=== PATIENT | male | born 1965 | race Hispanic/Latino ===

== ENCOUNTER 2018-06-14 09:47 | Emergency (ER) | payer SELFPAY ==
[2018-06-14] MEDS ORDERED: TETANUS & DIPHTHERIA TOX,ADULT 0.5 ML VIAL ONE (10:40)
--- NOTE | 2018-06-14 10:40 | RAD REPORT ---
EXAM DESCRIPTION: RAD - Hand Left 3 View - 06/14/2018 10:35 am CLINICAL HISTORY: Laceration, Puncture wound COMPARISON: No comparisons FINDINGS: Laceration is noted in the thenar region. No foreign body is seen. No fracture or dislocat ion evident.
[2018-06-14] MEDS ORDERED: LIDOCAINE 1% MPF 5 ML VIAL ONE (11:06)
--- NOTE | 2018-06-14 11:39 | ER ---
Nurse's Notes [facility] Name: Anthony Mcdaniel Age: 53 yrs Sex: Male : 1965 Arrival Date: 06/14/2018 Time: 09:51 Bed 14 Private MD: None, None Diagnosis: Laceration without foreign body of left hand Presentation: 06/14 09:57 Presenting complaint: my brother was cutting with a knife and he cut his LEFT hand. tw2 Transition of care: patient was not received from another setting of care. Complicating Factors: There are no complicating factors for this patient. Onset of symptoms was June 14, 2018. Risk Assessment: Do you want to hurt yourself or someone else? Patient reports no desire to harm self or others. Initial Sepsis Screen: Does the patient meet any 2 criteria? No. Patient's initial sepsis screen is negative. Does the patient have a suspected source of infection? No. Patient's initial sepsis screen is negative. Care prior to arrival: None. 09:57 Method Of Arrival: Ambulatory tw2 09:57 Acuity: MICHAEL 4 tw2 Triage Assessment: 10:01 General: Appears in no apparent distress. Behavior is calm, cooperative, appropriate tw2 for age. Pain: Complains of pain in Left first web space. Injury Description: Laceration sustained to Left first web space. Historical: - Allergies: 10:00 No Known Allergies; tw2 - Home Meds: 10:00 losartan oral oral [Active]; amlodipine oral [Active]; tw2 - PMHx: 10:00 Hypertension; tw2 - PSHx: 10:00 None; tw2 - Immunization history:: Last tetanus immunization: unknown. - Social history:: Smoking status: . - Ebola Screening: : Patient denies travel to an Ebola-affected area in the 21 days before illness onset. Screenin:20 Abuse screen: Denies threats or abuse. Denies injuries from another. Nutritional bp screening: No deficits noted. Tuberculosis screening: No symptoms or risk factors identified. Fall Risk None identified. Assessment: 10:15 General: Appears in no apparent distress. comfortable, Behavior is calm, cooperative, bp appropriate for age. Pain: Denies pain. Neuro: Level of Consciousness is awake, alert, obeys commands, Oriented to person, place, time, situation, Appropriate for age. Cardiovascular: No deficits noted. Respiratory: No deficits noted. GI: No signs and/or symptoms were reported involving the gastrointestinal system. : No signs and/or symptoms were reported regarding the genitourinary system. EENT: No deficits noted. Derm: No deficits noted. Musculoskeletal: Circulation, motion, and sensation intact. Range of motion: intact in all extremities. Injury Description: Laceration is clean, 0.5 to 2.5 cm long, not bleeding. 11:26 Reassessment: PROVIDER AT B/S FOR LAC REPAIR. bp Vital Signs: 10:00 BP 173 / 99; Pulse 67; Resp 18; Temp 98.1(O); Pulse Ox 99% on R/A; Pain 10/10; tw2 ED Course: 09:51 Patient arrived in ED. mr 09:52 None, None is Private Physician. mr 09:57 Triage completed. tw2 10:01 Arm band placed on. tw2 10:07 Zay Wiseman, [place] is Primary Nurse. bp 10:07 Guido Escobar NP is PHCP. pm1 10:08 Karlos Waterman MD is Attending Physician. pm1 10:20 Patient has correct armband on for positive identification. Bed in low position. Call bp light in reach. Side rails up X2. Adult w/ patient. 10:34 X-ray completed. Portable x-ray completed in exam room. Patient tolerated procedure sw well. 10:35 Hand Left 3 View XRAY In Process Unspecified. EDMS 11:30 Assist provider with laceration repair on Left first web space that was 2.5 cm. or less iw using sutures. Set up tray. Performed by Guido Escobar STONEMASON APPRENTICE Dressed with 4X4s, Kerlix, Patient tolerated well. Patient did not have IV access during this emergency room visit. Administered Medications: 10:20 Drug: Tetanus-Diphtheria Toxoid Adult 0.5 ml {Supervisory Civil Engineer: [employer]. Exp: bp 05/13/2020. Lot #: [id number]. } Route: IM; Site: right deltoid; 10:58 Follow up: Response: No adverse reaction bp 10:57 Drug: Lidocaine (1 %) 5 ml {Note: at b/s for provider.} Volume: 5 ml; Route: bp Infiltration; Outcome: 11:38 Discharge ordered by . pm1 11:59 Discharged to home ambulatory, with friend. iw 11:59 Condition: good 11:59 Discharge instructions given to patient, friend, Instructed on discharge instructions, follow up and referral plans. medication usage, Demonstrated understanding of instructions, follow-up care, medications, Prescriptions given X 1. 12:00 Patient left the ED. iw Signatures: Dispatcher [employer] EDMA Lonnie Kanika Edita Rojas RN RN iw Pao Lui Patrick, JAYRO STONEMASON APPRENTICE pm1 Sandra Soto RN RN tw2 Zay Wiseman, RN RN bp
--- NOTE | 2018-06-14 11:40 | EDPHYS ---
Physician Documentation [facility] Name: Anthony Mcdaniel Age: 53 yrs Sex: Male : 1965 Arrival Date: 06/14/2018 Time: 09:51 Bed 14 Private MD: None, None ED Physician Karlos Waterman HPI: 06/14 10:30 This 53 yrs old Male presents to ER via Ambulatory with complaints of pm1 Laceration To Left Hand. 10:30 The patient has a laceration related to: cooking, from a knife, The injury was pm1 accidental. The laceration(s) is(are) located on the Left first web space. Onset: The symptoms/episode began/occurred just prior to arrival. Associated signs and symptoms: Pertinent negatives: deformity, dizziness, heavy bleeding, numbness distal to injury, suspected foreign body. The patient has not experienced similar symptoms in the past. The patient has not recently seen a physician. Patient was cutting food and accidentally cut his left hand with a knife into his left first web space. No puncture wound. Historical: - Allergies: 10:00 No Known Allergies; tw2 - Home Meds: 10:00 losartan oral oral [Active]; amlodipine oral [Active]; tw2 - PMHx: 10:00 Hypertension; tw2 - PSHx: 10:00 None; tw2 - Immunization history:: Last tetanus immunization: unknown. - Social history:: Smoking status: . - Ebola Screening: : Patient denies travel to an Ebola-affected area in the 21 days before illness onset. ROS: 11:05 Constitutional: Negative for fever, chills, and weight loss, Eyes: Negative for injury, pm1 pain, redness, and discharge, ENT: Negative for injury, pain, and discharge, Neck: Negative for injury, pain, and swelling, Cardiovascular: Negative for chest pain, palpitations, and edema, Respiratory: Negative for shortness of breath, cough, wheezing, and pleuritic chest pain, Abdomen/GI: Negative for abdominal pain, nausea, vomiting, diarrhea, and constipation, Back: Negative for injury and pain, : Negative for injury, bleeding, discharge, and swelling, MS/Extremity: Negative for injury and deformity. 11:05 Skin: Positive for laceration(s), of the Left first web space. 11:05 Neuro: Negative for numbness, tingling, weakness. Exam: 11:05 Constitutional: This is a well developed, well nourished patient who is awake, alert, pm1 and in no acute distress. Head/Face: Normocephalic, atraumatic. Eyes: Pupils equal round and reactive to light, extra-ocular motions intact. Lids and lashes normal. Conjunctiva and sclera are non-icteric and not injected. Cornea within normal limits. Periorbital areas with no swelling, redness, or edema. ENT: Nares patent. No nasal discharge, no septal abnormalities noted. Tympanic membranes are normal and external auditory canals are clear. Oropharynx with no redness, swelling, or masses, exudates, or evidence of obstruction, uvula midline. Mucous membranes moist. Neck: Trachea midline, no thyromegaly or masses palpated, and no cervical lymphadenopathy. Supple, full range of motion without nuchal rigidity, or vertebral point tenderness. No Meningismus. Chest/axilla: Normal chest wall appearance and motion. Nontender with no deformity. No lesions are appreciated. Cardiovascular: Regular rate and rhythm with a normal S1 and S2. No gallops, murmurs, or rubs. Normal PMI, no JVD. No pulse deficits. Respiratory: Lungs have equal breath sounds bilaterally, clear to auscultation and percussion. No rales, rhonchi or wheezes noted. No increased work of breathing, no retractions or nasal flaring. Abdomen/GI: Soft, non-tender, with normal bowel sounds. No distension or tympany. No guarding or rebound. No evidence of tenderness throughout. Back: No spinal tenderness. No costovertebral tenderness. Full range of motion. 11:05 Skin: Appearance: normal except for affected area, injury, laceration(s), the wound is approximately 2 cm(s), with a depth of 0.5 cm(s), of the Left first web space, puncture(s), are not present, of the left hand, wound examined and probed with sterile q-tip after cleansing with Betadine. No puncture wound present. 11:05 Neuro: Orientation: is normal, Motor: is normal, moves all fours, strength is normal, strength is 5/5 in all extremities, Sensation: is normal, no obvious gross deficits, Gait: is steady, at a normal pace, without difficulty. Vital Signs: 10:00 BP 173 / 99; Pulse 67; Resp 18; Temp 98.1(O); Pulse Ox 99% on R/A; Pain 10/10; tw2 Laceration: 11:37 Wound Repair of 2cm ( 0.8in ) subcutaneous laceration to Left first web space. Linear pm1 shaped.. Distal neuro/vascular/tendon intact. Anesthesia: Local anesthetic administered with 2 mls of 1% lidocaine. Wound prep: Extensive cleansing with betadine by nurse, Wound irrigation with saline by nurse, Wound explored extensively, Copious irrigation. Skin closed with 4 4-0 Prolene using simple sutures and sterile technique. Dressed with Bacitracin, 4x4's. Patient tolerated well. MDM: 10:08 Patient medically screened. pm1 10:55 Data reviewed: vital signs. Data interpreted: Pulse oximetry: on room air is 99 %. pm1 Interpretation: normal. 11:10 Counseling: I had a detailed discussion with the patient and/or guardian regarding: the pm1 historical points, exam findings, and any diagnostic results supporting the discharge/admit diagnosis, radiology results. 06/14 10:14 Order name: Hand Left 3 View XRAY; Complete Time: 10:48 pm1 06/14 10:14 Order name: Wound Care; Complete Time: 10:23 pm1 06/14 10:52 Order name: Prolene, Sutures; Complete Time: 10:58 pm1 06/14 10:52 Order name: Dressing - Wound; Complete Time: 10:58 pm1 06/14 10:52 Order name: Gloves, Sterile; Complete Time: 10:58 pm1 06/14 10:53 Order name: Setup Suture Tray; Complete Time: 10:58 pm1 Administered Medications: 10:20 Drug: Tetanus-Diphtheria Toxoid Adult 0.5 ml {[place] Manager: [employer]. Exp: bp 05/13/2020. Lot #: [id number]. } Route: IM; Site: right deltoid; 10:58 Follow up: Response: No adverse reaction bp 10:57 Drug: Lidocaine (1 %) 5 ml {Note: at b/s for provider.} Volume: 5 ml; Route: bp Infiltration; Disposition: 18:47 Co-signature as Attending Physician, Karlos Waterman MD Available for consultation at ps1 all times. . Disposition: 06/14/18 11:38 Discharged to Home. Impression: Laceration without foreign body of left hand. - Condition is Stable. - Discharge Instructions: Laceration Care, Adult. - Prescriptions for Keflex 500 mg Oral Capsule - take 1 capsule by ORAL route every 12 hours for 10 days; 20 capsule. - Medication Reconciliation Form, Thank You Letter, Antibiotic Education form. - Follow up: Emergency Department; When: As needed; Reason: Worsening of condition. Follow up: Private Physician; When: 2 - 3 days; Reason: Recheck today's complaints, Continuance of care, Re-evaluation by your physician. - Problem is new. - Symptoms have improved. Signatures: Dispatcher [employer] EDMS Edita Silverio, RN RN iw Guido Escobar, JAYRO NATIONAL SALES DIRECTOR pm1 Sandra Soto RN RN tw2 Zay Wiseman, RN RN bp Karlos Waterman MD MD ps1 Corrections: (The following items were deleted from the chart) 10:55 10:30 The patient has a laceration related to: cooking, from a knife, and The type of pm1 wound is a puncture. The injury was accidental, pm1 10:55 10:30 Patient was cutting food and accidentally punctured his left hand with a knife pm1 into his left first web space. pm1 12:00 11:38 06/14/2018 11:38 Discharged to Home. Impression: Laceration without foreign body iw of left hand. Condition is Stable. Forms are Medication Reconciliation Form, Thank You Letter, Antibiotic Education, Prescription Opioid Use. Follow up: Emergency Department; When: As needed; Reason: Worsening of condition. Follow up: Private Physician; When: 2 - 3 days; Reason: Recheck today's complaints, Continuance of care, Re-evaluation by your physician. Problem is new. Symptoms have improved. pm1
== END 2018-06-14 12:00 | disposition home or self-care (01) ==
LOC: ER 09:47
PROC: 0JQK0ZZ Repair Left Hand Subcutaneous Tissue and Fascia, Open Approach (ICD-10-PCS; principal; 2018-06-14)
DX: S61.412A Laceration without foreign body of left hand, initial encounter (principal); W26.0XXA Contact with knife, initial encounter; I10 Essential (primary) hypertension; Z23 Encounter for immunization
CPT/HCPCS: 90714; 99284

== ENCOUNTER 2018-06-26 10:57 | Emergency (ER) | payer SELFPAY ==
--- NOTE | 2018-06-26 11:35 | ER ---
Nurse's Notes [facility] Name: Anthony Mcdaniel Age: 53 yrs Sex: Male : 1965 Arrival Date: 06/26/2018 Time: 10:59 Bed 11 Private MD: None, None Diagnosis: Encounter for removal of sutures Presentation: 06/26 11:10 Presenting complaint: Patient states: need for suture removal. Pt reports he had aa5 sutures placed 2 weeks ago to left hand. Transition of care: patient was not received from another setting of care. Onset of symptoms was June 2018. Risk Assessment: Do you want to hurt yourself or someone else? Patient reports no desire to harm self or others. Initial Sepsis Screen: Does the patient meet any 2 criteria? No. Patient's initial sepsis screen is negative. Does the patient have a suspected source of infection? No. Patient's initial sepsis screen is negative. Care prior to arrival: None. 11:10 Method Of Arrival: Ambulatory aa5 11:10 Acuity: MICHAEL 4 aa5 Historical: - Allergies: 11:11 No Known Allergies; aa5 - PMHx: 11:11 Hypertension; aa5 - PSHx: 11:11 None; aa5 - Immunization history:: Last tetanus immunization: up to date. - Social history:: Smoking status: Patient/guardian denies using tobacco. - Ebola Screening: : No symptoms or risks identified at this time. Screenin:21 Abuse screen: Denies threats or abuse. Denies injuries from another. Nutritional ss screening: No deficits noted. Tuberculosis screening: No symptoms or risk factors identified. Never had TB. Fall Risk None identified. Assessment: 11:22 General: Appears in no apparent distress. comfortable, Behavior is calm, cooperative. ss Pain: Denies pain. Neuro: Level of Consciousness is awake, alert, obeys commands. Respiratory: Respiratory effort is even, unlabored, Respiratory pattern is regular, symmetrical. EENT: Oral mucosa is moist. Derm: Skin is pink, warm \T\ dry. normal. 12:04 Reassessment: wound cleaned with Hibiclens and NS. Steri-strips placed in affected area.ss Vital Signs: 11:11 BP 154 / 79; Pulse 72; Resp 16 S; Temp 97.4(TE); Pulse Ox 98% on R/A; Weight 68.04 kg aa5 (R); Pain 0/10; ED Course: 10:59 Patient arrived in ED. ag5 11:00 None, None is Private Physician. ag5 11:05 [facility] Bow[facility]C [facility]. kb 11:05 Al Schultz MD is Attending Physician. kb 11:10 Arm band placed on. aa5 11:11 Triage completed. aa5 11:21 Monika Everett, RN is Primary Nurse. ss 11:21 Patient has correct armband on for positive identification. Bed in low position. Call ss light in reach. 11:21 Patient maintains SpO2 saturation greater than 95% on room air. ss 12:03 No provider procedures requiring assistance completed. Patient did not have IV access ss during this emergency room visit. Administered Medications: No medications were administered Outcome: 11:35 Discharge ordered by . kb 12:03 Discharged to home ambulatory, with family. ss 12:03 Condition: good 12:03 Discharge instructions given to patient, family. 12:03 No charge visit due to suture removal. 12:04 Patient left the ED. ss Signatures: Bita Bowie FNP-C FNP-Ckb Calderon, Audri RN RN aa5 Monika Everett, [place] RN Yanira Pedro ag5 Corrections: (The following items were deleted from the chart) 11:12 11:10 Acuity: MICHAEL 5 aa5 aa5
--- NOTE | 2018-06-26 11:35 | EDPHYS ---
Physician Documentation [facility] Name: Anthony Mcdaniel Age: 53 yrs Sex: Male : 1965 Arrival Date: 06/26/2018 Time: 10:59 Bed 11 Private MD: None, None ED Physician Al Schultz HPI: 06/26 11:33 This 53 yrs old Male presents to ER via Ambulatory with complaints of STICHES kb REMOVAL. 11:33 Patient presents to ED for recheck of: laceration. The affected area is on the Left kb first web space. Previous treatment: The patient was initially treated on June 14, 2018, the care was rendered at [facility], Treatment type: The patient's original treatment included sutures. Progress: The patient reports excellent improvement in the affected area. There has been resolution, improvement, or non-development of any drainage, fever, pain, redness or swelling. The patient has not experienced similar symptoms in the past. The patient has been recently seen at the [facility] Emergency Department, a couple of weeks ago, for similar complaints. Historical: - Allergies: 11:11 No Known Allergies; aa5 - PMHx: 11:11 Hypertension; aa5 - PSHx: 11:11 None; aa5 - Immunization history:: Last tetanus immunization: up to date. - Social history:: Smoking status: Patient/guardian denies using tobacco. - Ebola Screening: : No symptoms or risks identified at this time. ROS: 11:31 Constitutional: Negative for fever, chills, and weight loss, Cardiovascular: Negative kb for chest pain, palpitations, and edema, Respiratory: Negative for shortness of breath, cough, wheezing, and pleuritic chest pain, Abdomen/GI: Negative for abdominal pain, nausea, vomiting, diarrhea, and constipation, MS/Extremity: Negative for injury and deformity, Neuro: Negative for headache, weakness, numbness, tingling, and seizure. 11:31 Skin: Positive for laceration(s), of the Left first web space. Exam: 11:32 Constitutional: This is a well developed, well nourished patient who is awake, alert, kb and in no acute distress. Head/Face: Normocephalic, atraumatic. Chest/axilla: Normal chest wall appearance and motion. Nontender with no deformity. No lesions are appreciated. Cardiovascular: Regular rate and rhythm with a normal S1 and S2. No gallops, murmurs, or rubs. Normal PMI, no JVD. No pulse deficits. Respiratory: Lungs have equal breath sounds bilaterally, clear to auscultation and percussion. No rales, rhonchi or wheezes noted. No increased work of breathing, no retractions or nasal flaring. Abdomen/GI: Soft, non-tender, with normal bowel sounds. No distension or tympany. No guarding or rebound. No evidence of tenderness throughout. MS/ Extremity: Pulses equal, no cyanosis. Neurovascular intact. Full, normal range of motion. Neuro: Awake and alert, GCS 15, oriented to person, place, time, and situation. Cranial nerves II-XII grossly intact. Motor strength 5/5 in all extremities. Sensory grossly intact. Cerebellar exam normal. Normal gait. 11:32 Skin: Wound recheck: Suture laceration closure: the wound is healing well, the edges are well approximated, no evidence of dehiscence, no drainage, no erythema, no swelling. Vital Signs: 11:11 BP 154 / 79; Pulse 72; Resp 16 S; Temp 97.4(TE); Pulse Ox 98% on R/A; Weight 68.04 kg aa5 (R); Pain 0/10; Procedures: 11:34 Suture/Staple removal: Removed 4 sutures, from Left first web space, site appears well kb healed, dressed with band aid, Patient tolerated well. MDM: 11:17 Patient medically screened. 11:31 Data reviewed: vital signs, nurses notes. Data interpreted: Pulse oximetry: on room air kb is 98 %. Interpretation: normal. Counseling: I had a detailed discussion with the patient and/or guardian regarding: the historical points, exam findings, and any diagnostic results supporting the discharge/admit diagnosis, the need for outpatient follow up, a family practitioner, to return to the emergency department if symptoms worsen or persist or if there are any questions or concerns that arise at home. 06/26 11:31 Order name: Wound Care: clean and apply steristrips; Complete Time: 12:02 kb Administered Medications: No medications were administered Disposition: 15:03 Co-signature as Attending Physician, Al Schultz MD. ma2 Disposition: 06/26/18 11:35 Discharged to Home. Impression: Encounter for removal of sutures. - Condition is Stable. - Discharge Instructions: Suture Removal, Care After. - Medication Reconciliation Form, Thank You Letter, Antibiotic Education, Prescription Opioid Use form. - Follow up: Emergency Department; When: As needed; Reason: Worsening of condition. Follow up: Private Physician; When: 2 - 3 days; Reason: Recheck today's complaints, Continuance of care, Re-evaluation by your physician. Signatures: Bita Bowie FNP-C FNP-Ckb Calderon, Audri, RN RN aa5 Monika Everett RN RN ss Al Schultz MD MD ma2 Corrections: (The following items were deleted from the chart) 12:04 11:35 06/26/2018 11:35 Discharged to Home. Impression: Encounter for removal of ss sutures. Condition is Stable. Forms are Medication Reconciliation Form, Thank You Letter, Antibiotic Education, Prescription Opioid Use. Follow up: Emergency Department; When: As needed; Reason: Worsening of condition. Follow up: Private Physician; When: 2 - 3 days; Reason: Recheck today's complaints, Continuance of care, Re-evaluation by your physician. kb
== END 2018-06-26 12:04 | disposition home or self-care (01) ==
LOC: ER 10:57
DX: Z48.02 Encounter for removal of sutures (principal); I10 Essential (primary) hypertension